=== PATIENT | male | born 1940 | race Caucasian/White ===

== ENCOUNTER 2017-07-04 20:25 | Observation (INO) | payer OTHER, MEDICARE ==
[2017-07-04 20:28] VITALS: BP 137/65; PULSE 79; RESP 16; TEMP 98; O2SAT 98
[2017-07-04] MEDS ORDERED: SODIUM CHLORIDE 0.9% FLUSH 10 ML FLUSH IV FLUSH PRN (21:15)
--- NOTE | 2017-07-04 21:38 | RADRPT ---
EXAM DATE/TIME: 07/04/2017 21:14 [facility] COMPARISON: No previous studies available for comparison. INDICATIONS : Lower chest pain. MEDICAL HISTORY : Hypertension. Chronic obstructive pulmonary disease. Carcinoma, bladder. Coronary artery disease. Diabetes. SURGICAL HISTORY : CABG. Valve replacement. ENCOUNTER: Initial ACUITY: 1 day PAIN SCORE: 10/10 LOCATION: Bilateral chest FINDINGS: The lungs are clear without infiltrate, nodule, or mass. There is no appreciable pleural effusion fo r technique. Heart and mediastinum are unremarkable. There is evidence for prior median sternotomy. CONCLUSION: No acute cardiopulmonary disease. Anshul Menchaca MD on July 04, 2017 at 21:36 Board Certified Radiologist. This report was verified electronically.
[2017-07-04 21:44] LABS: HEMATOCRIT 38.7 % (39.0-51.0); HEMOGLOBIN 12.9 GM/DL (13.0-17.0); MEAN CORPUSCULAR HEMOGLOBIN 29.8 PG (27.0-34.0); MEAN CORPUSCULAR HGB CONC 33.4 % (32.0-36.0); MEAN PLATELET VOLUME 8.4 FL (7.0-11.0); PLATELET COUNT 174 TH/MM3 (150-450); RED BLOOD COUNT 4.34 MIL/MM3 (4.50-5.90); RED CELL DISTRIBUTION WIDTH 18.7 % (11.6-17.2); WHITE BLOOD COUNT 4.8 TH/MM3 (4.0-11.0)
[2017-07-04 21:52] LABS: INTERNATIONAL NORMALIZED RATIO 2.9 RATIO; PROTHROMBIN TIME - PATIENT 29.5 SEC (9.8-11.6)
[2017-07-04] MEDS ORDERED: TAMS0.4C4 PO (21:54)
[2017-07-04] MEDS ORDERED: URSO250T2 PO (21:54)
[2017-07-04] MEDS ORDERED: METO-393 PO (21:54)
[2017-07-04] MEDS ORDERED: PANT40TA3 PO (21:54)
[2017-07-04] MEDS ORDERED: FURO40TA PO (21:54)
[2017-07-04] MEDS ORDERED: XIFA550T4 PO (21:54)
[2017-07-04] MEDS ORDERED: GLIP10TA6 PO (21:54)
[2017-07-04] MEDS ORDERED: SPIR100T PO (21:54)
[2017-07-04] MEDS ORDERED: LACT10SO PO (21:54)
[2017-07-04 22:31] LABS: BANDS 1 % (0-6); BASOPHILS 1 % (0-2); LYMPHOCYTES 19 % (9-44); MONOCYTES 3 % (0-8); NEUTROPHIL # MANUAL DIFF 3.6 TH/MM3 (1.8-7.7); POLYS (SEG NEUTROPHILS) 73 % (16-70)
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
[2017-07-05 00:16] LABS: ALBUMIN 1.6 GM/DL (3.4-5.0); ALKALINE PHOSPHATASE 323 U/L (45-117); ALT (GPT) 78 U/L (12-78); AST (GOT) 564 U/L (15-37); BICARBONATE 24.8 MEQ/L (21.0-32.0); BLOOD UREA NITROGEN 12 MG/DL (7-18); CALCIUM 9.1 MG/DL (8.5-10.1); CHLORIDE 100 MEQ/L (98-107); CREATININE 0.99 MG/DL (0.60-1.30); GLOMERULAR FILTRATION RATE 74 ML/MIN (>89); MAGNESIUM 1.5 MG/DL (1.5-2.5); SODIUM (NA) 132 MEQ/L (136-145); TOTAL BILIRUBIN ADULT 11.5 MG/DL (0.2-1.0); TOTAL PROTEIN 8.6 GM/DL (6.4-8.2); TROPONIN I LESS THAN 0.02 NG/ML (0.02-0.05)
[2017-07-05 00:29] LABS: GLUCOSE,RANDOM 35 MG/DL (74-106)
[2017-07-05] MEDS ORDERED: DEXTROSE 50% IN WATER 50 ML SYRINGE IV PUSH ONE ×4 (00:45→14:30)
[2017-07-05 00:57] VITALS: BP 116/60; PULSE 78; RESP 22; O2SAT 94
[2017-07-05] MEDS ORDERED: IOHEXOL 350 MG/ML 10 ML VIAL (for RAD DIAG) IVCONTRAST ONE (01:24)
--- NOTE | 2017-07-05 01:37 | RADRPT ---
EXAM DATE/TIME: 07/05/2017 01:19 [facility] COMPARISON: No previous studies available for comparison. INDICATIONS : Abdominal pain; history of liver and bladder cancer. IV CONTRAST: 96 cc Omnipaque 350 (iohexol) IV ORAL CONTRAST: No oral contrast ingested. RADIATION DOSE: 8.7 CTDIvol (mGy) MEDICAL HISTORY : Carcinoma, bladder. Carcinoma, hepatocellular. Chronic obstructive pulmonary disease.Diabetes SURGICAL HISTORY : Colon resection. CABG ENCOUNTER: Initial ACUITY: 1 day PAIN SCALE: 7/10 LOCATION: abdomen TECHNIQUE: Volumetric scanning of the abdomen and pelvis was performed. Using automated exposure control and ad justment of the mA and/or kV according to patient size, radiation dose was kept as low as reasonably achievable to obtain optimal diagnostic quality images. DICOM format image data is available electro nically for review and comparison. FINDINGS: Examination demonstrates normal appearance of both kidneys. There is splenomegaly at 16 cm. There are varices present in the upper abdomen and along the omentum. Cholelithiasis is noted. There is a larg e heterogeneous mass within the central aspect of the liver with inhomogeneous enhancement believed t o measure 12.4 x 9.6 cm in AP and transverse dimension on axial image 23. There is dilatation of the intrahepatic biliary tree distal to the mass. Pancreas is normal. Adrenals are normal. Main portal ve in and right portal vein is patent. The left portal vein is occluded possibly by tumor thrombus. Athe rosclerotic calcification of the aorta and iliac vessels are seen. There is diffuse body wall edema. Prostate and urinary bladder are unremarkable. There is mild circumferential bowel wall thickening in volving the rectum. There is also mild circumferential bowel wall thickening involving the descending colon. Moderate ascites. There is a noncalcified left lower lobe 9 mm nodule and a 2.4 mm right midd le lobe nodule and a 5.4 mm right middle lobe nodule. This is concerning for metastatic disease. The osseous structures are intact. CONCLUSION: 1. There is a large mass seen within the liver with biliary ductal dilatation, and portal vein occlus ion as described above. Associated moderate ascites and varices in the upper abdomen and splenomegaly characteristic of portal hypertension. 2. Lung nodules are noted and concerning for metastatic disea se until proven otherwise. Colby Garcia MD on July 05, 2017 at 1:31 Board Certified Radiologist. This report was verified electronically.
[2017-07-05 01:48] LABS: BACTERIA, URINE MOD /hpf; BILIRUBIN, URINE MOD (NEG); BLOOD, URINE NEG (NEG); GLUCOSE,URINE NEG (NEG); KETONE, URINE NEG (NEG); NITRITE,URINE NEG (NEG); PH, URINE 6.5 (5.0-8.5); URINE COLOR DARK-YELLOW (YELLW/STRAW); URINE LEUKOCYTE ESTERASE NEG (NEG)
[2017-07-05] MEDS: DEXTROSE 5% IN WATE 1000ML INJ 1,000 ML IV SCH ×2 (01:54→03:34)
[2017-07-05] MEDS ORDERED: ONDANSETRON HCL 4 MG/2 ML VIAL IVP PRN (03:00)
[2017-07-05] MEDS ORDERED: SODIUM CHLORIDE 0.9% FLUSH 10 ML FLUSH IV FLUSH PRN (03:00)
[2017-07-05] MEDS ORDERED: NALOXONE HCL 0.4 MG/ML AMP IV PUSH PRN (03:00)
[2017-07-05] MEDS ORDERED: ACETAMINOPHEN 325 MG TAB PO PRN (03:00)
--- NOTE | 2017-07-05 03:13 | HHI.HP ---
[facility] No Primary Care Physician Admission Diagnosis hepatocellular carcinoma; hypoglycemia w/ T2DM Diagnoses: Travel History International Travel<30 Days: No Contact w/Intl Traveler <30 Da: No Traveled to Known Affected Are: No History of Present Illness 76-year-old male with a past medical history significant for asthma, diabetes mellitus, hypertension, hyperlipidemia, low grade papillary urothelial carcinoma and known hepatocellular carcinoma presents to the emergency department for evaluation of generalized weakness and increasing fatigue. The patient's daughters report that he arrived in [facility] on from [place] where he was previously worked up for his HCC. Since his arrival the patient has become more edematous with increasing ascites and pain with ambulation. He also reports a nonproductive cough and associated chest tightness. The patient was evaluated at [facility] for treatment and the tumor Board recommended palliative care at this time. CT scan done on 06/19/17 showed a cirrhotic liver with a mass measuring approximately 9.5 x 8.[address] also showed patent main portal and right portal veins. History is obtained from the patient's family to understand the prognosis and wish to proceed with hospice care. Review of Systems Except as stated in HPI: all other systems reviewed are Neg Past Family Social History Past Medical History Asthma Diabetes mellitus Hypertension Hyperlipidemia Past Surgical History CABG 3 Reported Medications Reported Meds & Active Scripts Active Reported German 250 (Ursodiol) 250 Mg Tab 250 Mg PO BID Tamsulosin (Tamsulosin HCl) 0.4 Mg Cap 0.8 Mg PO HS Spironolactone 100 Mg Tab 100 Mg PO DAILY Xifaxan (Rifaximin) 550 Mg Tab 550 Mg PO Q12HR Pantoprazole (Pantoprazole Sodium) 40 Mg Tab 40 Mg PO DAILY Metoprolol Succinate ER 24 HR (Metoprolol Succinate) 200 Mg Tab 200 Mg PO DAILY Lactulose Liq (Lactulose) 10 Gm/15 Ml Soln 30 Ml PO BID Glipizide 10 Mg Tab 10 Mg PO BIDAC Take 30 minutes before a meal Furosemide 40 Mg Tab 40 Mg PO DAILY Allergies: Coded Allergies: No Known Allergies (Unverified , 07/04/17) Family History Positive for diabetes mellitus and coronary artery disease. Social History Remote history of smoking. Occasional alcohol. Denies illicit drugs. Physical Exam Vital Signs Vital Signs Date Time Temp Pulse Resp B/P (MAP) Pulse Ox O2 Delivery O2 Flow Rate FiO2 07/05/17 00:57 78 22 116/60 (78) 94 Room Air 07/04/17 20:28 98.0 79 16 137/65 (89) 98 Room Air Physical Exam GENERAL: male lying in bed SKIN: No rashes, ecchymoses or lesions. Cool and dry. HEAD: Atraumatic. Normocephalic. No temporal or scalp tenderness. EYES: Pupils equal round and reactive. Extraocular motions intact. No scleral icterus. No injection or drainage. ENT: Nose without bleeding, purulent drainage or septal hematoma. Throat without erythema, tonsillar hypertrophy or exudate. Uvula midline. Airway patent. NECK: Trachea midline. No JVD or lymphadenopathy. Supple, nontender, no meningeal signs. CARDIOVASCULAR: Regular rate and rhythm with 2/6 BING. RESPIRATORY: Clear to auscultation. Breath sounds equal bilaterally. No wheezes , rales, or rhonchi. GASTROINTESTINAL: Abdomen distended. Mildly tender to palpation. No peritoneal signs. MUSCULOSKELETAL: Bilateral lower extremities with 2+ pitting edema that extends all the way to the abdomen. NEUROLOGICAL: Awake and alert. Cranial nerves II through XII intact. Motor and sensory grossly within normal limits. Normal speech. Laboratory Laboratory Tests Test 07/04/17 21:30 07/04/17 22:55 07/05/17 01:15 White Blood Count 4.8 Red Blood Count 4.34 Hemoglobin 12.9 Hematocrit 38.7 Mean Corpuscular Volume 89.0 Mean Corpuscular Hemoglobin 29.8 Mean Corpuscular Hemoglobin Concent 33.4 Red Cell Distribution Width 18.7 Platelet Count 174 Mean Platelet Volume 8.4 CBC Comment AUTO DIFF Differential Total Cells Counted 100 Neutrophils % (Manual) 73 Band Neutrophils % 1 Lymphocytes % 19 Monocytes % 3 Eosinophils % 3 Basophils % 1 Neutrophils # (Manual) 3.6 Differential Comment FINAL DIFF MANUAL Platelet Estimate NORMAL Platelet Morphology Comment ENLARGED Prothrombin Time 29.5 Prothromb Time International Ratio 2.9 Activated Partial Thromboplast Time 32.6 B-Type Natriuretic Peptide 163 Blood Urea Nitrogen 12 Creatinine 0.99 Random Glucose 35 Total Protein 8.6 Albumin 1.6 Calcium Level 9.1 Magnesium Level 1.5 Alkaline Phosphatase 323 Aspartate Amino Transf (AST/SGOT) 564 Alanine Aminotransferase (ALT/SGPT) 78 Total Bilirubin 11.5 Sodium Level 132 Potassium Level 3.6 Chloride Level 100 Carbon Dioxide Level 24.8 Anion Gap 7 Estimat Glomerular Filtration Rate 74 Lactic Acid Level 2.8 Ammonia LESS THAN 10 Total Creatine Kinase 121 Creatine Kinase MB LESS THAN 0.5 Troponin I LESS THAN 0.02 Lipase 139 Urine Color DARK-YELLOW Urine Turbidity CLEAR Urine pH 6.5 Urine Specific [place] 1.008 Urine Protein NEG Urine Glucose (UA) NEG Urine Ketones NEG Urine Occult Blood NEG Urine Nitrite NEG Urine Bilirubin MOD Urine Urobilinogen LESS THAN 2.0 Urine Leukocyte Esterase NEG Urine RBC 1 Urine WBC 2 Urine Bacteria MOD Microscopic Urinalysis Comment CULTURE INDICATED Date/Time Source Procedure Growth Status 07/05/17 01:15 Urine Clean Catch Urine Culture Pending Received Result Diagram: 07/04/17212907/04/17 2255 Caprini VTE Risk Assessment Caprini VTE Risk Assessment: Mod/High Risk (score >= 2) Caprini Risk Assessment Model Point Value = 1 Point Value = 2 Point Value = 3 Point Value = 5 Age 41-60 Minor surgery BMI > 25 kg/m2 Swollen legs Varicose veins or History of unexplained or recurrent spontaneous Oral contraceptives or hormone replacement Sepsis (< 1 month) Serious lung disease, including pneumonia (< 1 month) Abnormal pulmonary function Acute myocardial infarction Congestive heart failure (< 1 month) History of inflammatory bowel disease Medical patient at bed rest Age 61-74 Arthroscopic surgery Major open surgery (> 45 min) Laparoscopic surgery (> 45 min) Malignancy Confined to bed (> 72 hours) Immobilizing plaster cast Central venous access Age >= 75 History of VTE Family history of VTE Factor V Leiden Prothrombin [id number] Lupus anticoagulant Anticardiolipin antibodies Elevated serum homocysteine Heparin-induced thrombocytopenia Other congenital or acquired thrombophilia Stroke (< 1 month) Elective arthroplasty Hip, pelvis, or leg fracture Acute spinal cord injury (< 1 month) Prophylaxis Regimen Total Risk Factor Score Risk Level Prophylaxis Regimen 0-1 Low Early ambulation 2 Moderate Order ONE of the following: *Sequential Compression Device (SCD) *Heparin 5000 units SQ BID 3-4 Higher Order ONE of the following medications: *Heparin 5000 units SQ TID *Enoxaparin/Lovenox 40 mg SQ daily (WT < 150 kg, CrCl > 30 mL/min) *Enoxaparin/Lovenox 30 mg SQ daily (WT < 150 kg, CrCl > 10-29 mL/min) *Enoxaparin/Lovenox 30 mg SQ BID (WT < 150 kg, CrCl > 30 mL/min) AND/OR *Sequential Compression Device (SCD) 5 or more Highest Order ONE of the following medications: *Heparin 5000 units SQ TID (Preferred with Epidurals) *Enoxaparin/Lovenox 40 mg SQ daily (WT < 150 kg, CrCl > 30 mL/min) *Enoxaparin/Lovenox 30 mg SQ daily (WT < 150 kg, CrCl > 10-29 mL/min) *Enoxaparin/Lovenox 30 mg SQ BID (WT < 150 kg, CrCl > 30 mL/min) AND *Sequential Compression Device (SCD) Assessment and Plan Assessment and Plan Assessment/plan: 1. Hepatocellular carcinoma CT of the abdomen/pelvis performed today showed enlarged tumor from last measurements now measuring 12.4 x 9.6 cm. Patient's family understands the extremely poor prognosis Hospice consulted and family's request - family would like patient to go home with hospice care Continue home rifaximin, lactulose, ursodiol 2. Anasarca IV Lasix Continue home spironolactone 3. Diabetes mellitus Patient hypoglycemic at 35 on arrival to the emergency department Status post D50 Holding insulin at this time Accu-Cheks 4. Hypertension/GERD Continue home medications 5. Anxiety/depression Patient was previously treated for anxiety and depression in his home of [place]. Family requests psychiatric consult. FEN Regular diet Electrolytes: monitor and replete prn Beatris Montero MD Jul 05, 2017 03:13
[2017-07-05] MEDS ORDERED: ENOXAPARIN SODIUM 40 MG/0.4 ML SYRINGE SQ SCH (03:15)
[2017-07-05 07:24] VITALS: PULSE 69
[2017-07-05 08:20] VITALS: BP 123/63; PULSE 76; RESP 18; TEMP 98; O2SAT 100
[2017-07-05] MEDS ORDERED: RIFAXIMIN 550 MG TAB PO SCH (09:00)
[2017-07-05] MEDS ORDERED: SPIRONOLACTONE 100 MG TAB PO SCH (09:00)
[2017-07-05] MEDS ORDERED: PANTOPRAZOLE SOD 40 MG DELAYED RELEASE TAB PO SCH (09:00)
[2017-07-05] MEDS ORDERED: METOPROLOL SUCCINATE 50 MG EXTENDED RELEASE TAB PO SCH (09:00)
[2017-07-05] MEDS ORDERED: FUROSEMIDE 40 MG/4 ML VIAL IV PUSH SCH (09:00)
[2017-07-05] MEDS ORDERED: LACTULOSE SYRUP 20 GM/30 ML CUP PO SCH (09:00)
[2017-07-05] MEDS ORDERED: FUROSEMIDE 40 MG TAB PO SCH (09:00)
[2017-07-05] MEDS ORDERED: URSODIOL 300 MG CAP PO SCH (09:00)
[2017-07-05] MEDS ORDERED: SODIUM CHLORIDE 0.9% FLUSH 10 ML FLUSH IV FLUSH SCH (09:00)
[2017-07-05] MEDS ORDERED: BENZONATATE 100 MG CAP PO PRN (10:45)
--- NOTE | 2017-07-05 10:55 | HHI.PR ---
Subjective Remarks Follow-up for abdominal pain, increased lower extremity edema, hypoglycemia Patient stated he feels very weak otherwise has no complaints. Abdominal pain 6 out of 10 but he does not want any pain medication. Denies any nausea or vomiting. He also has a cough and does want cough medicine for this. Denying shortness of breathing. History daughters at the bedside during the interview. Family member stated that patient has a good appetite. Objective Vitals Vital Signs Date Time Temp Pulse Resp B/P (MAP) Pulse Ox O2 Delivery O2 Flow Rate FiO2 07/05/17 08:20 98.0 76 18 123/63 (83) 100 07/05/17 07:24 69 07/05/17 04:41 07/05/17 00:57 78 22 116/60 (78) 94 Room Air 07/04/17 20:28 98.0 79 16 137/65 (89) 98 Room Air I/O 07/04/17 07/04/17 07/04/17 07/05/17 07/05/17 07/05/17 07:00 15:00 23:00 07:00 15:00 23:00 Intake Total 300 ml Balance 300 ml Intake Oral 300 ml Result Diagram: 07/04/17212907/04/172254 Objective Remarks GENERAL: in NAD NECK: Supple, trachea midline. No JVD or lymphadenopathy. CARDIOVASCULAR: Regular rate and rhythm without murmurs, gallops, or rubs. RESPIRATORY: Breath sounds equal bilaterally. No accessory muscle use. GASTROINTESTINAL: Abdomen is distended but soft. No peritoneal signs. Positive tenderness to palpation in the mid abdomen with moderate to deep pressure. MUSCULOSKELETAL: + 1-2 pitting edema. Medications and IVs Current Medications Sodium Chloride (NS Flush) 2 ml UNSCH PRN IV FLUSH FLUSH AFTER USING IV ACCESS ; Start 07/04/17 at 21:15; Stop 07/05/17 at 02:59; Status DC Dextrose (D50w (Syr) Inj) 25 ml ONCE ONCE IV PUSH Last administered on at 00:58; Start 07/05/17 at 00:45; Stop 07/05/17 at 00:46; Status DC Dextrose 1,000 ml @ 100 mls/hr Q10H IV Last administered on 07/05/17at 03:34; Start 07/05/17 at 00:45 Iohexol (Omnipaque 350 Inj) 96 ml STK-MED ONCE IVCONTRAST Last administered on 07/05/17at 01:24; Start 07/05/17 at 01:24; Stop 07/05/17 at 01:25; Status DC Sodium Chloride (NS Flush) 2 ml UNSCH PRN IV FLUSH FLUSH AFTER USING IV ACCESS ; Start 07/05/17 at 03:00 Sodium Chloride (NS Flush) 2 ml BID IV FLUSH Last administered on 07/05/17at 08: 40; Start 07/05/17 at 09:00 Acetaminophen (Tylenol) 650 mg Q4H PRN PO TEMP > 100.4; Start 07/05/17 at 03:00 Ondansetron HCl (Zofran Inj) 4 mg Q6H PRN IVP NAUSEA OR VOMITING; Start at 03:00 Naloxone HCl (Narcan Inj) 0.4 mg UNSCH PRN IV PUSH SEE LABEL COMMENTS; Start at 03:00 Furosemide (Lasix) 40 mg DAILY PO ; Start 07/05/17 at 09:00; Stop 07/05/17 at 09: 00; Status DC Lactulose (Lactulose Liq) 30 ml BID PO ; Start 07/05/17 at 09:00 Pantoprazole Sodium (Protonix) 40 mg DAILY PO Last administered on 07/05/17at 09: 46; Start 07/05/17 at 09:00 Rifaximin (Xifaxan) 550 mg Q12HR PO Last administered on 07/05/17at 09:46; Start 07/05/17 at 09:00 Spironolactone (Aldactone) 100 mg DAILY PO Last administered on 07/05/17at 09:45 ; Start 07/05/17 at 09:00 Tamsulosin HCl (Flomax) 0.8 mg HS PO ; Start 07/05/17 at 21:00 Metoprolol Succinate (Toprol Xl) 200 mg DAILY PO Last administered on 07/05/17at 09:46; Start 07/05/17 at 09:00 Ursodiol (Actigall) 300 mg BID PO Last administered on 07/05/17at 09:45; Start at 09:00 Furosemide (Lasix Inj) 40 mg BID@ IV PUSH Last administered on 07/05/17at 09 :47; Start 07/05/17 at 09:00 Enoxaparin Sodium (Lovenox Inj) 40 mg Q24H SQ Last administered on 07/05/17at 03: 34; Start 07/05/17 at 03:15 Dextrose (D50w (Syr) Inj) 25 ml ONCE ONCE IV PUSH Last administered on at 08:39; Start 07/05/17 at 08:30; Stop 07/05/17 at 08:33; Status DC Benzonatate (Tessalon) 200 mg TID PRN PO cough; Start 07/05/17 at 10:45 A/P Assessment and Plan This is a 76-year-old male presented with abdominal pain and hypoglycemia Hepatocellular carcinoma -CT of the abdomen/pelvis performed today showed enlarged tumor from last measurements now measuring 12.4 x 9.6 cm. -Patient's family understands the extremely poor prognosis -Hospice consulted and family's request - family would like patient to go home with hospice care -Continue home rifaximin, lactulose, ursodiol Anasarca -IV Lasix but can switch to oral Lasix since symptoms are more in the lower extremity. -Patient is third spacing secondary to low albumin. -Continue home spironolactone Hypoglycemia secondary to oral hypoglycemic medication -Patient hypoglycemic at 35 on arrival to the emergency department. He is on glipizide which is the most likely culprit. -Patient has increased edema today due to being on IV fluids. Will discontinue IV fluids. -He received D50 and is drinking juices in which his blood sugars is improving. Diabetes -See treatment as above. Cough -Most likely postviral cough. Exam is normal. We'll give Tessalon Perles when necessary. Hypertension/GERD -Continue home medications Anxiety/depression -Patient was previously treated for anxiety and depression in his home of [place]. Family requests psychiatric consult. DVT prophylaxis -Lovenox. Discharge Planning Hospice consulted. Family wishes are for patient to go home with home hospice. Michelle Gary MD Jul 05, 2017 10:55
[2017-07-05 12:25] VITALS: BP 128/65; PULSE 78; RESP 18; TEMP 97.9; O2SAT 100
--- NOTE | 2017-07-05 13:07 | PD.PSY.CON ---
Provisional Diagnosis Admission Date Jul 05, 2017 at 02:24 [place] I. Adjustment disorder with anxiety and depression, history of major depressive disorder and TAYLOR [place] II. Deferred [place] III. GERD, hepatocellular carcinoma, diabetes mellitus History of Present Illness Service Psychiatry Consult Requested By ER team Reason for Consult Anxiety and depression Primary Care Physician No Primary Care Physician HPI The patient is a 76-year-old [place] man, domiciled with his daughter in [facility], , supported by Social Security, mostly Sinhala speaker, with psychiatric history of generalized anxiety disorder, depression, no previous psychiatric hospitalizations, no previous suicidal attempts, in the past he has been treated with Xanax 0.5 mg 3 times a day, Trazodone 100 mg at bedtime, past medical history significant for asthma, diabetes mellitus, hypertension, hyperlipidemia, low grade papillary urothelial carcinoma and hepatocellular carcinoma presents to the emergency department for evaluation of generalized weakness , anasarca and increasing fatigue. The patient's daughters report that he arrived in [facility] on from [place] where he was previously worked up for his HCC. Since his arrival the patient has become more edematous with increasing ascites and pain with ambulation. He also reports a nonproductive cough and associated chest tightness. The patient was evaluated at [facility] for treatment and the tumor Board recommended palliative care at this time. CT scan done on 06/19/17 showed a cirrhotic liver with a mass measuring approximately 9.5 x 8.[address] also showed patent main portal and right portal veins. History is obtained from the patient's family to understand the prognosis and wish to proceed with hospice care. The patient was consulted to psychiatry due to symptoms of anxiety and depression. Psychiatric evaluation the patient is calm, cooperative, pleasant. He was interviewed in his primary language is Sinhala. Patient reports that he feels much better today, even though he has been feeling very fatigued and down. Patient says that his mood is sad due to his current medical situation and his prognosis, but he continues to be hopeful that things could be better. He says that he wants to fight for his life "because I love my family". He does report low energy, decreased functionality, poor sleep at night, continues anxiety during the day, intrusive thoughts to consequence of the decompensation of his cancer. However, the patient denies hopelessness, he denies helplessness, he denies suicidal and homicidal ideation, he denies visual and auditory hallucinations. The patient is fully oriented 3. No fluctuation of consciousness, no attention deficit present. He denies the use of illegal drugs and alcohol. Review of Systems Constitutional: COMPLAINS OF: Diaphoretic episodes, Fatigue, Weight gain, DENIES: Fever, Weight loss, Chills, Dizziness, Change in appetite, Night Sweats Endocrine: DENIES: Heat/cold intolerance, Polydipsia, Polyuria, Polyphagia Eyes: DENIES: Blurred vision, Diplopia, Eye inflammation, Eye pain, Vision loss , Photosensitivity, Double Vision Ears, nose, mouth, throat: DENIES: Tinnitus, Hearing loss, Vertigo, Nasal discharge, Oral lesions, Throat pain, Hoarseness, Ear Pain, Running Nose, Epistaxis, Sinus Pain, Toothache, Odynophagia Respiratory: DENIES: Apneas, Cough, Snoring, Wheezing, Hemoptysis, Sputum production, Shortness of breath Cardiovascular: DENIES: Chest pain, Palpitations, Syncope, Dyspnea on Exertion , PND, Lower Extremity Edema, Orthopnea, Claudication Gastrointestinal: DENIES: Abdominal pain, Black stools, Bloody stools, Constipation, Diarrhea, Nausea, Vomiting, Difficulty Swallowing, Anorexia Genitourinary: DENIES: Sexual dysfunction, Urinary frequency, Urinary incontinence, Urgency, Hematuria, Dysuria, Nocturia, Penile Discharge, Testicular Pain, Testicular Swelling Musculoskeletal: DENIES: Joint pain, Muscle aches, Stiffness, Joint Swelling, Back pain, Neck pain Integumentary: DENIES: Abnormal pigmentation, Nail changes, Pruritus, Rash Hematologic/lymphatic: DENIES: Bruising, Lymphadenopathy Neurologic: DENIES: Abnormal gait, Headache, Localized weakness, Paresthesias, Seizures, Speech Problems, Tremor, Poor Balance Psychiatric: COMPLAINS OF: Anxiety, Depression, DENIES: Confusion, Mood changes , Hallucinations, Agitation, Suicidal Ideation, Homicidal Ideation, Delusions Past Family Social History Coded Allergies: No Known Allergies (Unverified , 07/04/17) Reported Medications Ursodiol (German 250) 250 Mg Tab, 250 MG PO BID for Primary biliary cirrhosis, # 60 TAB 0 Refills 07/04/17 Tamsulosin (Tamsulosin) 0.4 Mg Cap, 0.8 MG PO HS for Manage Prostate Problems, # 60 CAP 0 Refills 07/04/17 Spironolactone (Spironolactone) 100 Mg Tab, 100 MG PO DAILY, #30 TAB 0 Refills 07/04/17 Rifaximin (Xifaxan) 550 Mg Tab, 550 MG PO Q12HR for Hepatic encephalopathy, #60 TAB 0 Refills 07/04/17 Pantoprazole (Pantoprazole) 40 Mg Tab, 40 MG PO DAILY for Reflux, #30 TAB 0 Refills 07/04/17 Metoprolol Succinate ER 24 HR (Metoprolol Succinate ER 24 HR) 200 Mg Tab, 200 MG PO DAILY, #30 TAB 0 Refills 07/04/17 Lactulose Liq (Lactulose Liq) 10 Gm/15 Ml Soln, 30 ML PO BID, ML 0 Refills 07/04/17 Glipizide (Glipizide) 10 Mg Tab, 10 MG PO BIDAC for Blood Sugar Management, #60 TAB 0 Refills Take 30 minutes before a meal 07/04/17 Furosemide (Furosemide) 40 Mg Tab, 40 MG PO DAILY, #30 TAB 0 Refills 07/04/17 Current Medications Medications (Trade) Dose Ordered Sig/Radha Route Start Time Stop Time Status Last Admin (NS Flush) 2 ml UNSCH PRN IV FLUSH 07/05/17 03:00 (NS Flush) 2 ml BID IV FLUSH 07/05/17 09:00 07/05/17 08:40 (Tylenol) 650 mg Q4H PRN PO 07/05/17 03:00 (Zofran Inj) 4 mg Q6H PRN IVP 07/05/17 03:00 (Narcan Inj) 0.4 mg UNSCH PRN IV PUSH 07/05/17 03:00 (Lactulose Liq) 30 ml BID PO 07/05/17 09:00 (Protonix) 40 mg DAILY PO 07/05/17 09:00 07/05/17 09:46 (Xifaxan) 550 mg Q12HR PO 07/05/17 09:00 07/05/17 09:46 (Aldactone) 100 mg DAILY PO 07/05/17 09:00 07/05/17 09:45 (Flomax) 0.8 mg HS PO 07/05/17 21:00 (Toprol Xl) 200 mg DAILY PO 07/05/17 09:00 07/05/17 09:46 (Actigall) 300 mg BID PO 07/05/17 09:00 07/05/17 09:45 (Lasix Inj) 40 mg BID@,18 IV PUSH 07/05/17 09:00 07/05/17 09:47 (Lovenox Inj) 40 mg Q24H SQ 07/05/17 03:15 07/05/17 03:34 (Tessalon) 200 mg TID PRN PO 07/05/17 10:45 07/05/17 11:16 (Roxicodone) 5 mg Q6H PRN PO 07/05/17 10:45 Family Psych History She has a sister with dementia Social History Patient was born and raised in [place], he is , he is in the [place] his daughter, supported by Social Security, his highest level of education is 11th grade Patient's Strengths (min. 2) Family support Physical Exam Patient has marked psychomotor retardation, but no tremors, no EPS, no stiffness Vital Signs Vital Signs Date Time Temp Pulse Resp B/P (MAP) Pulse Ox O2 Delivery O2 Flow Rate FiO2 07/05/17 12:25 97.9 78 18 128/65 (86) 100 07/05/17 00:57 Room Air I/O 07/05/17 07/05/17 07/06/17 08:00 16:00 00:00 Intake Total 300 ml Balance 300 ml Lab Results Test 07/04/17 21:30 07/04/17 22:55 07/05/17 01:15 White Blood Count 4.8 TH/MM3 Red Blood Count 4.34 MIL/MM3 Hemoglobin 12.9 GM/DL Hematocrit 38.7 % Mean Corpuscular Volume 89.0 FL Mean Corpuscular Hemoglobin 29.8 PG Mean Corpuscular Hemoglobin Concent 33.4 % Red Cell Distribution Width 18.7 % Platelet Count 174 TH/MM3 Mean Platelet Volume 8.4 FL CBC Comment AUTO DIFF Differential Total Cells Counted 100 Neutrophils % (Manual) 73 % Band Neutrophils % 1 % Lymphocytes % 19 % Monocytes % 3 % Eosinophils % 3 % Basophils % 1 % Neutrophils # (Manual) 3.6 TH/MM3 Differential Comment FINAL DIFF MANUAL Platelet Estimate NORMAL Platelet Morphology Comment ENLARGED Prothrombin Time 29.5 SEC Prothromb Time International Ratio 2.9 RATIO Activated Partial Thromboplast Time 32.6 SEC B-Type Natriuretic Peptide 163 PG/ML Blood Urea Nitrogen 12 MG/DL Creatinine 0.99 MG/DL Random Glucose 35 MG/DL Total Protein 8.6 GM/DL Albumin 1.6 GM/DL Calcium Level 9.1 MG/DL Magnesium Level 1.5 MG/DL Alkaline Phosphatase 323 U/L Aspartate Amino Transf (AST/SGOT) 564 U/L Alanine Aminotransferase (ALT/SGPT) 78 U/L Total Bilirubin 11.5 MG/DL Sodium Level 132 MEQ/L Potassium Level 3.6 MEQ/L Chloride Level 100 MEQ/L Carbon Dioxide Level 24.8 MEQ/L Anion Gap 7 MEQ/L Estimat Glomerular Filtration Rate 74 ML/MIN Lactic Acid Level 2.8 mmol/L Ammonia LESS THAN 10 MCMOL/L Total Creatine Kinase 121 U/L Creatine Kinase MB LESS THAN 0.5 NG/ML Troponin I LESS THAN 0.02 NG/ML Lipase 139 U/L Urine Color DARK-YELLOW Urine Turbidity CLEAR Urine pH 6.5 Urine Specific [place] 1.008 Urine Protein NEG mg/dL Urine Glucose (UA) NEG mg/dL Urine Ketones NEG mg/dL Urine Occult Blood NEG Urine Nitrite NEG Urine Bilirubin MOD Urine Urobilinogen LESS THAN 2.0 MG/DL Urine Leukocyte Esterase NEG Urine RBC 1 /hpf Urine WBC 2 /hpf Urine Bacteria MOD /hpf Microscopic Urinalysis Comment CULTURE INDICATED Date/Time Source Procedure Growth Status 07/05/17 01:15 Urine Clean Catch Urine Culture Pending Received Mental Status Examination Appearance: Appropriate Consciousness: Alert Orientation: x4 Motor Activity: Normal gait Speech: Unremarkable Language: Adequate Fund of Knowledge: Adequate Attention and Concentration: Adequate Memory: Unremarkable Mood: Sad Affect: Appropriate, Sad Thought Process & Associations: Intact Thought Content: Appropriate Hallucination Type: None Delusion Type: None Suicidal Ideation: No Suicidal Plan: No Suicidal Intention: No Homicidal Ideation: No Homicidal Plan: No Homicidal Intention: No Insight: Adequate Judgment: Adequate Assessment & Plan Problem List: (1) Adjustment disorder with mixed anxiety and depressed mood ICD Codes: F43.23 - Adjustment disorder with mixed anxiety and depressed mood Assessment & Plan: On psychiatric evaluation the patient presents with symptomatology of depression and anxiety in the context of acute exacerbation of underlying medical conditions, including poor prognosis hepatocellular carcinoma. The patient denies hopelessness, denies helplessness, denies worthlessness, he denies suicidal and homicidal ideation, he denies visual and auditory hallucinations. Patient does report poor sleep, daytime fatigue, lack of motivation, psychomotor retardation, continues anxiety. He she is interested in restarting psychotropics that has been very helpful in the past for depression and anxiety. Family members are in agreement with this. I will start trazodone 100 mg at bedtime to help with depression and insomnia. Also clonazepam 0.5 mg twice a day for anxiety. Brief supportive psychotherapy, motivation and psychoeducation provided. He does not meet criteria for involuntary psychiatric admission. I will follow-up. Assessment & Plan Estimated LOS: Kvng Sepulveda MD Jul 05, 2017 13:07
--- NOTE | 2017-07-05 13:24 | EKG ---
Date Performed: 07/04/2017 Time Performed: 22:01:51 PTAGE: 76 years EKG: Sinus rhythm LEFT VENTRICULAR HYPERTROPHY AND ST-T CHANGE ABNORMAL ECG NO PREVIOUS TRACING DOCTOR: Lalo Morelos Interpretating Date/Time 07/05/2017 13:23:18
--- NOTE | 2017-07-05 15:55 | HHI.DS ---
Discharge Summary Admission Date Jul 05, 2017 at 02:24 Discharge Date: Jul 05, 2017 Admitting Diagnosis hepatocellular carcinoma; hypoglycemia w/ T2DM (1) Hypoglycemia ICD Code: E16.2 - Hypoglycemia, unspecified Diagnosis: Principal (2) Hepatocellular carcinoma ICD Code: C22.0 - Liver cell carcinoma Diagnosis: Principal (3) Adjustment disorder with mixed anxiety and depressed mood ICD Code: F43.23 - Adjustment disorder with mixed anxiety and depressed mood Diagnosis: Principal Procedures see hospital course Brief History - From Admission 76-year-old male with a past medical history significant for asthma, diabetes mellitus, hypertension, hyperlipidemia, low grade papillary urothelial carcinoma and known hepatocellular carcinoma presents to the emergency department for evaluation of generalized weakness and increasing fatigue. The patient's daughters report that he arrived in [facility] on from [place] where he was previously worked up for his HCC. Since his arrival the patient has become more edematous with increasing ascites and pain with ambulation. He also reports a nonproductive cough and associated chest tightness. The patient was evaluated at [facility] for treatment and the tumor Board recommended palliative care at this time. CT scan done on 06/19/17 showed a cirrhotic liver with a mass measuring approximately 9.5 x 8.[address] also showed patent main portal and right portal veins. History is obtained from the patient's family to understand the prognosis and wish to proceed with hospice care. CBC/BMP: 07/04/170 07/04/17 5129 Significant Findings Laboratory Tests Test 07/04/17 21:30 07/04/17 22:55 07/05/17 01:15 Red Blood Count 4.34 MIL/MM3 (4.50-5.90) Hemoglobin 12.9 GM/DL (13.0-17.0) Hematocrit 38.7 % (39.0-51.0) Red Cell Distribution Width 18.7 % (11.6-17.2) Neutrophils % (Manual) 73 % (16-70) Platelet Morphology Comment ENLARGED (NORMAL) Prothrombin Time 29.5 SEC (9.8-11.6) Activated Partial Thromboplast Time 32.6 SEC (24.3-30.1) B-Type Natriuretic Peptide 163 PG/ML (0-100) Random Glucose 35 MG/DL (74-106) Total Protein 8.6 GM/DL (6.4-8.2) Albumin 1.6 GM/DL (3.4-5.0) Alkaline Phosphatase 323 U/L (45-117) Aspartate Amino Transf (AST/SGOT) 564 U/L (15-37) Total Bilirubin 11.5 MG/DL (0.2-1.0) Sodium Level 132 MEQ/L (136-145) Estimat Glomerular Filtration Rate 74 ML/MIN (>89) Lactic Acid Level 2.8 mmol/L (0.4-2.0) Ammonia LESS THAN 10 MCMOL/L Creatine Kinase MB LESS THAN 0.5 NG/ML Troponin I LESS THAN 0.02 NG/ML Urine Color DARK-YELLOW (YELLW/STRAW) Urine Bilirubin MOD (NEG) Urine Bacteria MOD /hpf (NONE) PE at Discharge GENERAL: in NAD NECK: Supple, trachea midline. No JVD or lymphadenopathy. CARDIOVASCULAR: Regular rate and rhythm without murmurs, gallops, or rubs. RESPIRATORY: Breath sounds equal bilaterally. No accessory muscle use. GASTROINTESTINAL: Abdomen is distended but soft. No peritoneal signs. Positive tenderness to palpation in the mid abdomen with moderate to deep pressure. MUSCULOSKELETAL: + 1-2 pitting edema. Pt update on day of discharge Later during the hospital course patient was asking to go home. She was seen by hospice nurse Susan and per hospice patient wants to go home today with home hospice. Hospital Course This is a 76-year-old male presented with abdominal pain and hypoglycemia Hepatocellular carcinoma -CT of the abdomen/pelvis performed today showed enlarged tumor from last measurements now measuring 12.4 x 9.6 cm. -Patient's family understands the extremely poor prognosis -Hospice consulted and family's request. Patient seen by hospice and order for hospice with home health was placed. Anasarca -IV Lasix but can switch to oral Lasix since symptoms are more in the lower extremity. -Patient is third spacing secondary to low albumin. -Continue home spironolactone -He was discharged to hospice. Hypoglycemia secondary to oral hypoglycemic medication -Secondary to glipizide. DC glipizide. -He was given D50 and encouraged to drink juices. Did not recommend restarting glipizide. Diabetes -See treatment as above. Cough -Most likely postviral cough. Exam is normal. Tessalon Perles when necessary. Hypertension/GERD -Continue home medications On the day of discharge patient wanted to go home with home hospice. His wish and family wishes were granted. Pt Condition on Discharge: Deteriorating Discharge Disposition: Hospice/ Home Discharge Time: <= 30 minutes Discharge Instructions DIET: Follow Instructions for: As Tolerated, No Restrictions Activities you can perform: Regular-No Restrictions Michelle Gary MD Jul 05, 2017 15:55
[2017-07-05] MEDS ORDERED: TAMSULOSIN HCL 0.4 MG CAP PO SCH (21:00)
[2017-07-05] MEDS ORDERED: clonazePAM 0.5 MG TAB PO SCH (21:00)
[2017-07-05] MEDS ORDERED: traZODone HCL 100 MG TAB PO SCH (21:00)
== END 2017-07-05 15:07 | disposition home or self-care (01) ==
LOC: NEPC 20:25 → NEDA 07-05 02:24 → NEPGCP 07-05 04:53
PROVIDERS: ADMIT Family Medicine; ATTEND Family Medicine
DX: C22.0 Liver cell carcinoma (principal); E11.649 Type 2 diabetes mellitus with hypoglycemia without coma; I11.0 Hypertensive heart disease with heart failure; I50.9 Heart failure, unspecified; K21.9 Gastro-esophageal reflux disease without esophagitis; F43.23 Adjustment disorder with mixed anxiety and depressed mood; G47.00 Insomnia, unspecified; R94.31 Abnormal electrocardiogram [ECG] [EKG]; D64.9 Anemia, unspecified; I25.10 Atherosclerotic heart disease of native coronary artery without angina pectoris; I42.9 Cardiomyopathy, unspecified; J44.9 Chronic obstructive pulmonary disease, unspecified; K72.90 Hepatic failure, unspecified without coma; K80.20 Calculus of gallbladder without cholecystitis without obstruction; R16.1 Splenomegaly, not elsewhere classified; I70.0 Atherosclerosis of aorta; R91.8 Other nonspecific abnormal finding of lung field; H91.90 Unspecified hearing loss, unspecified ear; K74.60 Unspecified cirrhosis of liver; Z95.1 Presence of aortocoronary bypass graft; Z85.05 Personal history of malignant neoplasm of liver; Z85.51 Personal history of malignant neoplasm of bladder; Z79.899 Other long term (current) drug therapy
CPT/HCPCS: 71045; 74177; 80053; 81001; 82140; 82550; 82552; 82948; 83605; 83690; 83735; 83880; 84484; 85007; 85027; 85610; 85730; 87077; 87086; 87186; 93005; 96361; 96372; 96374; 99285; G0378; J1650; J1940; J7070; Q9967